=== PATIENT | female | born 1960 | race African-American/Black ===

== ENCOUNTER 2020-08-09 15:46 | Inpatient (IN) ==
[2020-08-09] MEDS ORDERED: HYDROmorphone 2 MG/1 ML VIAL IV STA (16:50)
[2020-08-09] MEDS ORDERED: ONDANSETRON 4 MG/2 ML VIAL IV STA (16:50)
[2020-08-09] MEDS ORDERED: HYDROmorphone 2 MG/1 ML VIAL ONE (16:51)
[2020-08-09] MEDS ORDERED: ONDANSETRON 4 MG/2 ML VIAL ONE (16:53)
[2020-08-09 17:28] LABS: Alanine Aminotransferase 16 U/L (13-56); Albumin 3.6 G/DL (3.4-5.0); Alkaline Phosphatase 70 U/L (45-117); Aspartate Amino Transferase 12 U/L (0-37); Bilirubin,Total < 0.39 MG/DL (0.2-1.0); Blood Urea Nitrogen 23 MG/DL (7-18); Calcium 9.2 MG/DL (8.5-10.1); Carbon Dioxide 26 MMOL/L (21-32); Estimated Glom Filtration Rate 92 ML/MIN; Glucose 118 MG/DL (74-106); Osmolality,Calculated 285.3 MOS/KG (273-304); Potassium 3.9 MMOL/L (3.5-5.1); Sodium 141 MMOL/L (136-145); Total Protein 7.2 G/DL (6.4-8.3)
[2020-08-09] MEDS ORDERED: SODIUM CHLORIDE 0.9% 1,000 ML IV STA (17:31)
[2020-08-09] MEDS ORDERED: ONDANSETRON 4 MG/2 ML VIAL IV PRN (17:32)
[2020-08-09 17:46] LABS: Basophils # 0.1 10*3/uL (0.0-0.2); Basophils % 0.6 % (0.0-0.8); Eosinophils % 0.3 % (0.00-10.9); Hematocrit 27.5 VOL% (35.7-47.0); Immature Granulocytes % 0.3 %; Immature Granulocytes Absolute 0.02 #; Lymphocytes # 0.9 10*3/uL (1.4-4.0); Lymphocytes % 11.7 % (21.3-54.2); Mean Corpuscular HGB Conc 29.1 GM/DL (32-36); Mean Corpuscular Volume 79.3 FL (87-102); Mean Platelet Volume 10.1 FL (9.6-12.0); Monocytes % 8.6 % (1.7-12.7); Neutrophils % 78.5 % (38.7-73.9); Platelet Count 214 T/CUMM (130-400); Red Blood Count 3.47 MC/CUMM (3.8-5.5); Red Cell Distribution Width 23.1 % (9.3-17.3); White Blood Count 7.9 T/CUMM (4-12)
[2020-08-09 18:25] LABS: Bacteria,Urine Occasional /HPF (Few); Bilirubin,Urine Negative (Negative); Blood, Urine Small mg/dL (Negative); Glucose,Urine (UA) Negative (Negative); Ketones,Urine Negative (Negative); Mucus,Urine Occasional /LPF (Occasional); Nitrite,Urine Negative (Negative); Protein,Urine 100 MG/DL; RBC,Urine 1 /HPF (0-4); Squamous Epithelial Cell,Urine Occasional /HPF (0-10); Urine Appearance CLEAR (Clear); Urine Color Straw (Yellow); Urine Specific Gravity 1.016 (1.001-1.035); Urine Urobilinogen < 2.0 EU/DL (0.2-1.0); WBC,Urine 1 /HPF (0-6)
[2020-08-09] MEDS: LACTATED RINGERS 1,000 ML IV SCH (19:23)
[2020-08-09 19:29] LABS: Microcytosis 1+
[2020-08-09 19:30] LABS: Platelet Estimate Increased
[2020-08-09] MEDS: MORPHINE 4 MG/1 ML VIAL IV PRN (23:04)
[2020-08-10] MEDS: MORPHINE 4 MG/1 ML VIAL IV PRN ×3 (04:34→21:21)
[2020-08-10 05:38] LABS: Basophils % 0.6 % (0.0-0.8); Eosinophils # 0.1 10*3/uL (0.0-0.87); Eosinophils % 1.1 % (0.00-10.9); Hematocrit 25.7 VOL% (35.7-47.0); Hemoglobin 7.3 GM/DL (12.0-16.0); Immature Granulocytes % 0.5 %; Immature Granulocytes Absolute 0.03 #; Lymphocytes % 14.5 % (21.3-54.2); Mean Corpuscular HGB Conc 28.4 GM/DL (32-36); Mean Corpuscular Volume 82.6 FL (87-102); Mean Platelet Volume 10.3 FL (9.6-12.0); Monocytes % 12.9 % (1.7-12.7); Neutrophils % 70.4 % (38.7-73.9); Platelet Count 207 T/CUMM (130-400); Red Blood Count 3.11 MC/CUMM (3.8-5.5); Red Cell Distribution Width 22.6 % (9.3-17.3); White Blood Count 6.5 T/CUMM (4-12)
[2020-08-10 06:08] LABS: Anisocytosis 1+; Hypochromasia 1+; Microcytosis 1+
[2020-08-10 06:09] LABS: Ovalocytes Slight; Platelet Estimate Normal; Stomatocytes Slight
[2020-08-10] MEDS ORDERED: SODIUM CHLORIDE 0.9% 1,000 ML IV PRN (07:36)
[2020-08-10] MEDS: LACTATED RINGERS 1,000 ML IV SCH ×3 (07:38→21:09)
[2020-08-10] MEDS ORDERED: fentaNYL 100 MCG/2 ML VIAL ONE (08:14)
[2020-08-10] MEDS ORDERED: MIDAZOLAM 2 MG/2 ML VIAL ONE (08:39)
[2020-08-10] MEDS: PANTOPRAZOLE 40 MG TABLET PO SCH (09:19)
[2020-08-10] MEDS ORDERED: PROMETHAZINE 25 MG/1 ML VIAL IM PRN (10:26)
[2020-08-10] MEDS ORDERED: MAGNESIUM HYDROXIDE SUSP 30 ML UDCUP PO PRN (10:26)
[2020-08-10] MEDS ORDERED: diphenhydrAMINE CAP 25 MG CAPSULE PO PRN (10:26)
[2020-08-10] MEDS ORDERED: oxyCODONE/ACETAMINOPHEN 5-325 MG TABLET PO PRN ×2 (10:30)
[2020-08-10] MEDS ORDERED: ONDANSETRON ODT 4 MG TABLET PO PRN (10:43)
[2020-08-10] MEDS ORDERED: ONDANSETRON 4 MG/2 ML VIAL ONE (10:47)
[2020-08-10] MEDS ORDERED: propofoL 200 MG/20 ML VIAL IV ONE (10:47)
[2020-08-10] MEDS ORDERED: SODIUM CHLORIDE 0.9% 1,000 ML IV ONE (10:47)
[2020-08-10] MEDS ORDERED: LIDOCAINE 2% 5 ML VIAL ONE (10:47)
[2020-08-10] MEDS ORDERED: SEVOFLURANE 1 UNIT/15 MINUTE INH ONE (10:47)
[2020-08-10] MEDS ORDERED: PHENYLEPHRINE 1 MG/10 ML SYRINGE IV ONE (10:47)
[2020-08-10] MEDS ORDERED: HYDROmorphone 2 MG/1 ML VIAL ONE (10:59)
[2020-08-10] MEDS ORDERED: ONDANSETRON 4 MG/2 ML VIAL IV PRN (11:00)
[2020-08-10] MEDS: HYDROmorphone 2 MG/1 ML VIAL IV PRN ×2 (11:00→11:05)
[2020-08-10] MEDS: GABAPENTIN 600 MG TABLET PO SCH ×2 (15:58→21:08)
[2020-08-10] MEDS ORDERED: POLYVINYL ALCOHOL 1.4% OPH SOLN 15 ML BOTTLE RIGHT EYE PRN (16:24)
[2020-08-10] MEDS: ceFAZolin 1,000 MG in SYRINGE 1 EACH IV SCH (17:14)
[2020-08-10] MEDS ORDERED: ACETAMINOPHEN 325 MG TABLET PO PRN (20:18)
[2020-08-10] MEDS ORDERED: OXYBUTYNIN XL 15 MG TABLET PO SCH (21:00)
[2020-08-10] MEDS: VANCOMYCIN INJ 1,000 MG in SODIUM CHLORIDE 0.9% 250 ML IV SCH (21:09)
[2020-08-10] MEDS: [UNRECOGNIZED DRUG - OTHER] PO SCH (21:21)
[2020-08-10] MEDS: DIMETHYL FUMARATE 240 MG PO SCH (21:21)
[2020-08-11] MEDS: ceFAZolin 1,000 MG in SYRINGE 1 EACH IV SCH ×2 (00:41→09:22)
[2020-08-11 05:48] LABS: Basophils % 0.5 % (0.0-0.8); Eosinophils # 0.1 10*3/uL (0.0-0.87); Eosinophils % 1.7 % (0.00-10.9); Hematocrit 28.9 VOL% (35.7-47.0); Hemoglobin 8.7 GM/DL (12.0-16.0); Immature Granulocytes % 0.5 %; Immature Granulocytes Absolute 0.04 #; Lymphocytes # 0.8 10*3/uL (1.4-4.0); Lymphocytes % 10.6 % (21.3-54.2); Mean Corpuscular HGB Conc 30.1 GM/DL (32-36); Mean Corpuscular Volume 83.8 FL (87-102); Mean Platelet Volume 10.5 FL (9.6-12.0); Monocytes % 11.5 % (1.7-12.7); Neutrophils % 75.2 % (38.7-73.9); Platelet Count 162 T/CUMM (130-400); Red Blood Count 3.45 MC/CUMM (3.8-5.5); Red Cell Distribution Width 20.9 % (9.3-17.3); White Blood Count 7.5 T/CUMM (4-12)
[2020-08-11 06:09] LABS: Calcium 8.7 MG/DL (8.5-10.1); Osmolality,Calculated 281.3 MOS/KG (273-304); Potassium 4.2 MMOL/L (3.5-5.1)
[2020-08-11] MEDS ORDERED: hydrALAZINE 20 MG/1 ML VIAL IV PRN (08:21)
[2020-08-11] MEDS ORDERED: ChlordiazePOXIDE/CLIDINIUM 5-2.5 MG CAPSULE PO SCH (09:00)
[2020-08-11] MEDS: BACLOFEN 10 MG TABLET PO SCH ×3 (09:11→20:58)
[2020-08-11] MEDS: GABAPENTIN 600 MG TABLET PO SCH ×3 (09:11→20:58)
[2020-08-11] MEDS: LOSARTAN 50 MG TABLET PO SCH (09:19)
[2020-08-11] MEDS: PANTOPRAZOLE 40 MG TABLET PO SCH (09:20)
[2020-08-11] MEDS: VANCOMYCIN INJ 1,000 MG in SODIUM CHLORIDE 0.9% 250 ML IV SCH (09:20)
[2020-08-11] MEDS: DIMETHYL FUMARATE 240 MG PO SCH ×2 (09:22→21:13)
[2020-08-11] MEDS: [UNRECOGNIZED DRUG - OTHER] PO SCH ×2 (09:22→21:13)
[2020-08-11] MEDS ORDERED: HYDROmorphone 2 MG/1 ML VIAL IV PRN ×2 (10:17)
[2020-08-11] MEDS: KETOROLAC 15 MG/1 ML VIAL IV SCH ×3 (11:39→23:29)
[2020-08-12 05:26] LABS: Basophils % 0.5 % (0.0-0.8); Eosinophils # 0.3 10*3/uL (0.0-0.87); Eosinophils % 4.5 % (0.00-10.9); Hematocrit 25.7 VOL% (35.7-47.0); Hemoglobin 7.8 GM/DL (12.0-16.0); Immature Granulocytes % 0.5 %; Immature Granulocytes Absolute 0.03 #; Lymphocytes # 0.6 10*3/uL (1.4-4.0); Lymphocytes % 10.7 % (21.3-54.2); Mean Corpuscular HGB Conc 30.4 GM/DL (32-36); Mean Corpuscular Volume 84.8 FL (87-102); Mean Platelet Volume 11.2 FL (9.6-12.0); Monocytes % 13.2 % (1.7-12.7); Neutrophils % 70.6 % (38.7-73.9); Platelet Count 124 T/CUMM (130-400); Red Blood Count 3.03 MC/CUMM (3.8-5.5); Red Cell Distribution Width 21.4 % (9.3-17.3)
[2020-08-12] MEDS: KETOROLAC 15 MG/1 ML VIAL IV SCH ×3 (05:43→20:54)
[2020-08-12 05:50] LABS: % Iron Saturation 2.9 % (18-50); Ferritin 63.8 ng/ml (8-252)
[2020-08-12 05:54] LABS: Folate 6.5 NG/ML (5.38-24.0); Vitamin B12 213 PG/ML (211-911)
[2020-08-12 06:31] LABS: Hypochromasia 1+; Microcytosis 1+
[2020-08-12 06:32] LABS: Platelet Estimate Adequate
[2020-08-12 06:50] LABS: Sedimentation Rate-Westergren 45 MM/HR (0-30)
[2020-08-12] MEDS: LOSARTAN 50 MG TABLET PO SCH (09:56)
[2020-08-12] MEDS: PANTOPRAZOLE 40 MG TABLET PO SCH (10:01)
[2020-08-12] MEDS: GABAPENTIN 600 MG TABLET PO SCH ×3 (10:01→20:51)
[2020-08-12] MEDS: DIMETHYL FUMARATE 240 MG PO SCH ×2 (10:23→20:57)
[2020-08-12] MEDS: [UNRECOGNIZED DRUG - OTHER] PO SCH ×2 (10:23→20:57)
[2020-08-12] MEDS: BACLOFEN 10 MG TABLET PO SCH ×3 (10:24→20:52)
[2020-08-12 11:00] LABS: Hemoglobin A1 (Alkaline) 97.8 % (96.5-98.5); Hemoglobin A2 (Alkaline) 2.2 % (1.5-3.5)
[2020-08-12] MEDS: IRON SUCROSE 200 MG in SODIUM CHLORIDE 0.9% 100 ML IV SCH (13:24)
[2020-08-12] MEDS: CYANOCOBALAMIN 100 MCG TABLET PO SCH (20:52)
[2020-08-13] MEDS: KETOROLAC 15 MG/1 ML VIAL IV SCH ×2 (01:32→08:03)
[2020-08-13 06:12] LABS: Basophils % 0.3 % (0.0-0.8); Eosinophils # 0.3 10*3/uL (0.0-0.87); Eosinophils % 4.8 % (0.00-10.9); Hematocrit 25.5 VOL% (35.7-47.0); Hemoglobin 7.8 GM/DL (12.0-16.0); Immature Granulocytes % 0.2 %; Immature Granulocytes Absolute 0.01 #; Lymphocytes # 0.7 10*3/uL (1.4-4.0); Lymphocytes % 12.1 % (21.3-54.2); Mean Corpuscular HGB Conc 30.6 GM/DL (32-36); Mean Corpuscular Volume 82.3 FL (87-102); Mean Platelet Volume 10.8 FL (9.6-12.0); Monocytes % 12.5 % (1.7-12.7); Neutrophils % 70.1 % (38.7-73.9); Platelet Count 142 T/CUMM (130-400); Red Cell Distribution Width 21.6 % (9.3-17.3); White Blood Count 6.1 T/CUMM (4-12)
[2020-08-13 06:24] LABS: Calcium 8.8 MG/DL (8.5-10.1); Osmolality,Calculated 289.8 MOS/KG (273-304); Potassium 3.9 MMOL/L (3.5-5.1)
[2020-08-13] MEDS: IRON SUCROSE 200 MG in SODIUM CHLORIDE 0.9% 100 ML IV SCH (09:26)
[2020-08-13] MEDS: CYANOCOBALAMIN 100 MCG TABLET PO SCH (09:27)
[2020-08-13] MEDS: LOSARTAN 50 MG TABLET PO SCH (09:27)
[2020-08-13] MEDS: BACLOFEN 10 MG TABLET PO SCH (09:27)
[2020-08-13] MEDS: PANTOPRAZOLE 40 MG TABLET PO SCH (09:27)
[2020-08-13] MEDS: GABAPENTIN 600 MG TABLET PO SCH (09:28)
[2020-08-13] MEDS: DIMETHYL FUMARATE 240 MG PO SCH (09:36)
[2020-08-13] MEDS: [UNRECOGNIZED DRUG - OTHER] PO SCH (09:36)
[2020-08-13 11:48] VITALS: BP 170/96
== END 2020-08-13 13:29 | DRG 481 ==
LOC: EDBD → EDUNIT# → N.ED 15:46 → N.EDINP 15:46 → N.3E 18:24
PROVIDERS: ADMIT Surgery; ATTEND Orthopaedic Surgery